=== PATIENT | male | born 1960 | race Two or more races ===

== ENCOUNTER 2024-05-22 10:26 | Observation (INO) | payer OTHER ==
[2024-05-22] MEDS ORDERED: METOCLOPRAMIDE HCL INJECTION 10 MG/2 ML VIAL ONE (11:34)
[2024-05-22] MEDS ORDERED: ACETAMINOPHEN INJECTION 100 ML ONE (11:35)
[2024-05-22] MEDS: ACETAMINOPHEN 1000 MG/100 ML BAG IVPB ONE (11:47)
[2024-05-22] MEDS: SODIUM CHLORIDE 0.9% 500 ML INFUS.BAG IV ONE (11:47)
[2024-05-22] MEDS: METOCLOPRAMIDE HCL INJECTION 10 MG/2 ML VIAL IVPB ONE (11:48)
[2024-05-22 12:00] LABS: BASO % 0.5 % (0-2.0); EOS % 2.4 % (0-4.5); HEMATOCRIT 44.9 % (35.4-49); HEMOGLOBIN 14.3 GM/dL (11.7-16.9); LYMPH % 29.4 % (8-40); MCH 28.9 pg (25.7-33.7); MCHC 31.9 g/dl (32.0-35.9); MEAN CELL VOLUME 90.7 fl (80-96); MEAN PLT VOLUME 9.2 fl (7.5-11.1); MONO % 10.1 % (3.8-10.2); NEUT % 57.6 % (42.8-82.8); PLATELET COUNT 248 10^3/uL (134-434); RBC 4.95 M/mm3 (4.00-5.60); RDW 16.3 % (11.9-15.9); WHITE BLOOD COUNT 7.4 K/mm3 (4.0-10.0)
[2024-05-22 12:18] LABS: POTASSIUM 4.3 mmol/L (3.5-5.1)
[2024-05-22 12:20] LABS: ALBUMIN 3.6 g/dl (3.4-5.0); BLOOD UREA NITROGEN 11.8 mg/dL (7-18); CALCIUM 9.8 mg/dL (8.5-10.1)
[2024-05-22 12:24] LABS: CREATININE 0.8 mg/dL (0.55-1.3)
[2024-05-22 12:25] LABS: BILIRUBIN,TOTAL 0.3 mg/dL (0.2-1); TOT PROT 7.4 g/dl (6.4-8.2)
[2024-05-22 13:16] LABS: HIV INTERPRETATION NEGATIVE (NEGATIVE)
[2024-05-22] MEDS ORDERED: predniSONE 20 MG TABLET (UD) ONE (14:42)
[2024-05-22] MEDS: predniSONE 20 MG TABLET (UD) PO ONE (15:01)
[2024-05-22] MEDS ORDERED: KETOROLAC TROMETHAMINE 15 MG/ML VIAL ONE (17:23)
[2024-05-22] MEDS: KETOROLAC TROMETHAMINE 15 MG/ML VIAL IVPUSH ONE (17:36)
[2024-05-22] MEDS ORDERED: methylPREDNISolone NA SUCC 125 MG/2 ML VIAL ONE (21:17)
[2024-05-22] MEDS: methylPREDNISolone NA SUCC 125 MG/2 ML VIAL IVPUSH SCH (21:22)
[2024-05-22 22:40] VITALS: BMI 19.5
[2024-05-23] MEDS: MELATONIN 5 MG TABLETS PO ONE (00:58)
[2024-05-23] MEDS: ACETAMINOPHEN 1000 MG/100 ML BAG IVPB PRN (01:13)
[2024-05-23] MEDS: NICOTINE 7 MG/24 HOURS TOPICAL PATCH TD ONE (06:57)
[2024-05-23 07:54] LABS: HEMATOCRIT 44.7 % (35.4-49); HEMOGLOBIN 14.5 GM/dL (11.7-16.9); MCH 29.3 pg (25.7-33.7); MCHC 32.4 g/dl (32.0-35.9); MEAN CELL VOLUME 90.5 fl (80-96); MEAN PLT VOLUME 9.4 fl (7.5-11.1); PLATELET COUNT 253 10^3/uL (134-434); RBC 4.95 M/mm3 (4.00-5.60); WHITE BLOOD COUNT 11.7 K/mm3 (4.0-10.0)
[2024-05-23 08:11] LABS: POTASSIUM 4.4 mmol/L (3.5-5.1)
[2024-05-23 08:15] LABS: CALCIUM 9.6 mg/dL (8.5-10.1)
[2024-05-23 08:16] LABS: BLOOD UREA NITROGEN 21.2 mg/dL (7-18); MAGNESIUM 1.8 mg/dL (1.8-2.4)
[2024-05-23 08:19] LABS: CREATININE 0.9 mg/dL (0.55-1.3); PHOSPHOROUS 3.4 mg/dL (2.5-4.9)
[2024-05-23 09:40] LABS: EPI CELLS 4 /uL (0-25.1); HYALINE CASTS 1 /uL (0-3.1); PH,URINE 5.5 (5.0-8.0); URINE APPEARANCE CLEAR; URINE BACTERIA 8282 /uL (0-1359); URINE BILIRUBIN NEGATIVE (NEGATIVE); URINE COLOR YELLOW; URINE GLUCOSE (UA) NEGATIVE (NEGATIVE); URINE KETONE NEGATIVE (NEGATIVE); URINE LEUK ESTERASE 1+ (NEGATIVE); URINE NITRITE NEGATIVE (NEGATIVE); URINE PROTEIN NEGATIVE (NEGATIVE); URINE RBC 8 /uL (0-23.9); URINE UROBILINOGEN 0.2 mg/dL (0.2-1.0); URINE WBC 175 /uL (0-25.8)
[2024-05-23] MEDS: PANTOPRAZOLE 40 MG TABLET PO SCH (09:45)
[2024-05-23] MEDS: ENOXAPARIN NA (PORCINE) 40 MG/0.4 ML DISP.SYRIN SQ SCH (09:45)
[2024-05-23] MEDS ORDERED: ACETAMINOPHEN 325 MG TABLET (FP) PO PRN (12:02)
[2024-05-23] MEDS ORDERED: CITALOPRAM HYDROBROMIDE 20 MG TABLET PO SCH (12:30)
[2024-05-23] MEDS ORDERED: TIOTROPIUM BROMIDE 2.5 MCG (SPIRIVA) RESPIMAT INHALER IH SCH (12:30)
[2024-05-23] MEDS: FLU VACCINE (FLULAVAL) PF 45 MCG/0.5 ML SYRINGE 2024-2025 IM ONE (12:58)
[2024-05-23] MEDS: VERAPAMIL HCL SR 180 MG CAP SUSTAINED RELEASE PO SCH (14:10)
[2024-05-23] MEDS: QUEtiapine FUMARATE 25 MG TABLET PO SCH (14:11)
[2024-05-23] MEDS: LORATADINE 10 MG TABLET PO SCH (14:11)
[2024-05-23] MEDS: TIOTROPIUM BROMIDE 2.5 MCG (SPIRIVA) RESPIMAT INHALER IH SCH (14:56)
[2024-05-23] MEDS: CITALOPRAM HYDROBROMIDE 20 MG TABLET PO SCH (14:58)
[2024-05-23] MEDS ORDERED: DOCUSATE SODIUM 100 MG CAPSULE (FP) PO PRN (16:02)
[2024-05-23] MEDS: POLYETHYLENE GLYCOL (HEALTHYLAX) 3350 17 GM PACKET PO SCH (17:38)
[2024-05-23] MEDS: AMOX TR/POT CLAV 875MG/125MG TABLETS (FP) PO SCH (17:38)
[2024-05-23] MEDS ORDERED: ONDANSETRON 4 MG/2 ML VIAL IVPUSH PRN (18:18)
[2024-05-23] MEDS: NICOTINE 7 MG/24 HOURS TOPICAL PATCH TD SCH (19:09)
[2024-05-23] MEDS: MIRTAZAPINE 15 MG TABLET (FP) PO SCH (21:26)
[2024-05-23] MEDS: DOCUSATE SODIUM 100 MG CAPSULE (FP) PO SCH (21:26)
[2024-05-23] MEDS: MONTELUKAST NA 10 MG TABLET PO SCH (21:28)
[2024-05-24 08:30] LABS: BASO % 0.2 % (0-2.0); EOS % 0.4 % (0-4.5); HEMOGLOBIN 13.5 GM/dL (11.7-16.9); LYMPH % 25.8 % (8-40); MCHC 33.9 g/dl (32.0-35.9); MEAN CELL VOLUME 88.7 fl (80-96); MEAN PLT VOLUME 9.6 fl (7.5-11.1); MONO % 7.2 % (3.8-10.2); NEUT % 66.4 % (42.8-82.8); PLATELET COUNT 219 10^3/uL (134-434); RBC 4.51 M/mm3 (4.00-5.60); RDW 16.3 % (11.9-15.9); WHITE BLOOD COUNT 11.3 K/mm3 (4.0-10.0)
[2024-05-24 08:41] LABS: POTASSIUM 4.4 mmol/L (3.5-5.1)
[2024-05-24 08:55] LABS: ALBUMIN 3.3 g/dl (3.4-5.0); CALCIUM 9.2 mg/dL (8.5-10.1); MAGNESIUM 1.9 mg/dL (1.8-2.4)
[2024-05-24 08:56] LABS: BLOOD UREA NITROGEN 18.9 mg/dL (7-18)
[2024-05-24 08:58] LABS: CREATININE 0.8 mg/dL (0.55-1.3)
[2024-05-24 08:59] LABS: TOT PROT 6.7 g/dl (6.4-8.2)
[2024-05-24 09:00] LABS: BILIRUBIN,TOTAL 0.3 mg/dL (0.2-1)
[2024-05-24] MEDS: VERAPAMIL HCL 180 MG E.R. TABLET PO SCH (09:32)
[2024-05-25 09:31] VITALS: RESP 18
[2024-05-25] MEDS: MULTIVITAMINS (DAILY MVI) TABLET (FP) PO SCH (10:03)
[2024-05-25] MEDS: ACETAMINOPHEN/CAFFEINE/BUTALBITAL 1 TAB PO PRN (12:02)
[2024-05-25 14:40] VITALS: BP 120/74; PULSE 61; TEMP 98.6
[2024-05-25 15:28] LABS: BASO % 0.6 % (0-2.0); EOS % 1.9 % (0-4.5); HEMATOCRIT 45.9 % (35.4-49); LYMPH % 30.5 % (8-40); MCH 29.2 pg (25.7-33.7); MCHC 32.8 g/dl (32.0-35.9); MEAN CELL VOLUME 89.1 fl (80-96); MEAN PLT VOLUME 9.1 fl (7.5-11.1); MONO % 9.1 % (3.8-10.2); NEUT % 57.9 % (42.8-82.8); PLATELET COUNT 251 10^3/uL (134-434); RBC 5.15 M/mm3 (4.00-5.60); RDW 16.6 % (11.9-15.9); WHITE BLOOD COUNT 11.3 K/mm3 (4.0-10.0)
[2024-05-25 15:48] LABS: POTASSIUM 4.4 mmol/L (3.5-5.1)
[2024-05-25 15:49] LABS: CALCIUM 9.9 mg/dL (8.5-10.1)
[2024-05-25 15:50] LABS: ALBUMIN 3.8 g/dl (3.4-5.0); BLOOD UREA NITROGEN 22.6 mg/dL (7-18)
[2024-05-25 15:55] LABS: BILIRUBIN,TOTAL 0.3 mg/dL (0.2-1); TOT PROT 7.3 g/dl (6.4-8.2)
== END 2024-05-25 17:24 | disposition home or self-care (01) ==
LOC: JER 10:26 → JERBED 15:35 → J7W 22:05
PROVIDERS: ADMIT Internal Medicine; ATTEND Physician Assistant
PROC: 3E033NZ Introduction of Analgesics, Hypnotics, Sedatives into Peripheral Vein, Percutaneous Approach (ICD-10-PCS; principal; 2024-05-22)
PROC: 3E023GC Introduction of Other Therapeutic Substance into Muscle, Percutaneous Approach (ICD-10-PCS; 2024-05-22)
PROC: 3E0234Z Introduction of Serum, Toxoid and Vaccine into Muscle, Percutaneous Approach (ICD-10-PCS; 2024-05-22)
PROC: 3E0333Z Introduction of Anti-inflammatory into Peripheral Vein, Percutaneous Approach (ICD-10-PCS; 2024-05-22)
PROC: 3E033GC Introduction of Other Therapeutic Substance into Peripheral Vein, Percutaneous Approach (ICD-10-PCS; 2024-05-22)
PROC: 3E0337Z Introduction of Electrolytic and Water Balance Substance into Peripheral Vein, Percutaneous Approach (ICD-10-PCS; 2024-05-22)
DX: J01.90 Acute sinusitis, unspecified (principal); G43.909 Migraine, unspecified, not intractable, without status migrainosus; D72.829 Elevated white blood cell count, unspecified; R94.5 Abnormal results of liver function studies; R42 Dizziness and giddiness; R74.01 Elevation of levels of liver transaminase levels; F41.8 Other specified anxiety disorders; Z23 Encounter for immunization
CPT/HCPCS: 36415; 70450-TC; 70486-TC; 80048; 80053; 81003; 83735; 84100; 85025; 85027; 85651; 86140; 86705; 86706; 86803; 87340; 87389; 90471; 90656; 93005; 93010; 96372; 96374; 96375; 96376; 99285-25; G0378; J0131

== ENCOUNTER 2024-09-11 13:07 | Emergency (ER) | payer OTHER ==
[2024-09-11 13:36] VITALS: RESP 18; TEMP 97.4; BMI 19.3
[2024-09-11] MEDS ORDERED: ACETAMINOPHEN INJECTION 100 ML ONE (14:33)
[2024-09-11] MEDS ORDERED: ONDANSETRON 4 MG/2 ML VIAL ONE (14:33)
[2024-09-11] MEDS: ONDANSETRON 4 MG/2 ML VIAL IVPUSH ONE (15:20)
[2024-09-11] MEDS: ACETAMINOPHEN 1000 MG/100 ML BAG IVPB ONE (15:20)
[2024-09-11 15:22] LABS: ABSOLUTE IMMATURE GRANULOCYTES 0.02 x10^3/uL (0.0-0.031); BASOPHILS # 0.03 x10^3/uL (0.01-0.08); EOSINOPHIL % 1.8 % (0.8-7.0); EOSINOPHILS # 0.16 x10^3/uL (0.04-0.54); HEMATOCRIT 46.7 % (40.1-51.0); HEMOGLOBIN 15.8 g/dL (13.7-17.5); MCHC 33.8 g/dl (32.3-36.5); MEAN PLT VOLUME 11.2 fl (9.4-12.4); MONOCYTE # 0.81 x10^3/uL (0.30-0.82); MONOCYTE % 9.1 % (5.3-12.2); PLATELET COUNT 224 x10^3/uL (163-337); RDW 14.8 % (12.2-16.4)
[2024-09-11 15:28] LABS: EPI CELLS 9 /uL (0-25.1); HYALINE CASTS 0 /uL (0-3.1); PH,URINE 5.5 (5.0-8.0); URINE APPEARANCE CLEAR; URINE BACTERIA 20 /uL (0-1359); URINE BILIRUBIN NEGATIVE (NEGATIVE); URINE COLOR YELLOW; URINE GLUCOSE (UA) NEGATIVE (NEGATIVE); URINE KETONE NEGATIVE (NEGATIVE); URINE LEUK ESTERASE NEGATIVE (NEGATIVE); URINE NITRITE NEGATIVE (NEGATIVE); URINE PROTEIN NEGATIVE (NEGATIVE); URINE RBC 23 /uL (0-23.9); URINE UROBILINOGEN 0.2 mg/dL (0.2-1.0); URINE WBC 13 /uL (0-25.8)
[2024-09-11 15:33] LABS: INR 1.04 (0.83-1.09); PROTHROMBIN TIME (PATIENT) 11.4 SEC (9.7-13.0)
[2024-09-11 15:44] LABS: POTASSIUM 4.3 mmol/L (3.5-5.1)
[2024-09-11 15:48] LABS: ALBUMIN 3.6 g/dl (3.4-5.0); CALCIUM 9.7 mg/dL (8.5-10.1)
[2024-09-11 15:51] LABS: CREATININE 0.8 mg/dL (0.55-1.3)
[2024-09-11 15:53] LABS: BILIRUBIN,TOTAL 0.5 mg/dL (0.2-1); TOT PROT 7.1 g/dl (6.4-8.2)
[2024-09-11 16:41] LABS: HCV DIAGNOSTIC IN-HOUSE W/RFLX NON-REACTIVE (NONREACTIVE); HIV INTERPRETATION NEGATIVE (NEGATIVE)
[2024-09-11 19:11] VITALS: BP 150/92; PULSE 74
== END 2024-09-11 18:54 | disposition home or self-care (01) ==
LOC: JER 13:07
PROC: 3E033NZ Introduction of Analgesics, Hypnotics, Sedatives into Peripheral Vein, Percutaneous Approach (ICD-10-PCS; principal; 2024-09-11)
PROC: 3E033GC Introduction of Other Therapeutic Substance into Peripheral Vein, Percutaneous Approach (ICD-10-PCS; 2024-09-11)
DX: R31.9 Hematuria, unspecified (principal); N48.89 Other specified disorders of penis; R11.0 Nausea
CPT/HCPCS: 36415; 76870-TC; 80053; 81003; 85025; 85610; 85730; 86803; 86850; 86900; 86901; 87086; 87186; 87389; 99285-25; J0131